=== PATIENT | female | born 1980 | race Caucasian/White ===

== ENCOUNTER → 2019-01-23 | Emergency (ER) | payer MEDICAID ==
[~2019-01-23] VITALS: Wt 80.0 kg
[~2019-01-23] MED LIST: IBUP800T48 PO
[2019-01-23 10:51] VITALS: BP 144/71; PULSE 102; RESP 20
--- NOTE | 2019-01-23 12:31 | ERD ---
ER Documentation Chief Complaint Chief Complaint VAGINAL BLEED NOT . ONSET 1 WK . SEVERE BLEEDING WITH CLOTS HPI 39-year-old female, , presents to the emergency department, complaining of 2 weeks with a menstrual period that started 01/09/2019. The patient is also complaining of mild cramping pain. Otherwise she denies headaches, fever, chills, dizziness, no reports of palpitations or weakness. The patient states that this is the first time that she is having an abnormal menses. ROS All systems reviewed and are negative except as per history of present illness. Allergies Allergies: Coded Allergies: No Known Allergy (Verified , 01/23/19) PMhx/Soc Medical and Surgical Hx: pt denies Medical Hx History of Surgery: No Anesthesia Reaction: No Hx Neurological Disorder: No Hx Respiratory Disorders: No Hx Cardiac Disorders: No Hx Psychiatric Problems: No Hx Miscellaneous Medical Probl: No Hx Alcohol Use: No Hx Substance Use: No Hx Tobacco Use: No Smoking Status: Never smoker FmHx Family History: No diabetes, No coronary disease Physical Exam Vitals Vital Signs Date Temp Pulse Resp B/P (MAP) Pulse Ox O2 O2 Flow FiO2 Time Delivery Rate 01/23/19 98.0 102 20 144/71 98 10:51 (95) Physical Exam Const: No acute distress Head: Atraumatic Eyes: Normal Conjunctiva ENT: Normal External Ears, Nose and Mouth. Neck: Full range of motion. No meningismus. Resp: Clear to auscultation bilaterally Cardio: Regular rate and rhythm, no murmurs Abd: Soft, non tender, non distended. Normal bowel sounds Skin: No petechiae or rashes Back: No midline or flank tenderness Ext: No cyanosis, or edema Neur: Awake and alert Psych: Normal Mood and Affect Results 24 hrs Laboratory Tests Test 01/23/19 12:35 01/23/19 12:37 POC Beta HCG, Qualitative NEGATIVE Bedside Urine pH (LAB) 6.5 Bedside Urine Protein (LAB) 2+ Bedside Urine Glucose (UA) Negative Bedside Urine Ketones (LAB) 1+ Bedside Urine Blood 3+ Bedside Urine Nitrite (LAB) Negative Bedside Urine Leukocyte Esterase (L Negative Procedures/MDM Vital signs stable, Physical exam unremarkable, abdomen soft, nontender. Patient hemodynamically stable. Differential diagnosis include but not limited to: , ovarian cyst, fib roids, endometriosis, malignancy, dysfunctional bleeding, hematologic condition. Low suspicion for PID, no signs of hypovolemic shock. Physical examination and clinical presentation consistent most likely with a first episode of metrorrhagia for 2 weeks, no clinical evidence of anemia. During the ED course the patient remained stable, no new complaints. Results and clinical impression discussed with patient who agrees with management. The patient is stable to be treated outpatient and will be discharged home with a Rx for ibuprofen, some side effects of prescribed medications (headache, rash, nausea, vomiting, diarrhea, drowsiness, habituation, bleeding, hypertension, interactions with other medications) were reviewed. The patient was instructed to follow up with the primary care provider in the next 48h. If symptoms persist, worsen or new symptoms develop, then patient should return to the ED immediately. Instructions explained and given directly by me to the patient with acknowledgment and demonstrated understanding. Disclaimer: Inadvertent spelling and grammatical errors are likely due to EHR/dictation software use and do not reflect on the overall quality of patient care. Also, please note that the electronic time recorded on this note does not necessarily reflect the actual time of the patient encounter. Departure Diagnosis: Primary Impression: Metrorrhagia Additional Impression: Perimenopausal Condition: Stable Additional Instructions: Muchas deng por [facility] para dave servicio. Esperamos que en dave visita a la fiona de emergencia dave problema medico haya sido solucionado y que se sienta mucho mejor. Para estar seguros que dave mejoria sigue en proceso, le pedimos el favor de hacer brenda jesica de seguimiento medico con dave doctor primario en los proximos 2-4 [place]ley. Lleve con usted estos documentos y las medicinas recetadas. Si selena sintomas empeoran, NO SE ESPERE, por favor regrese a fiona de emergencia INMEDIATAMENTE. En cecilia que usted no tenga un mdico de atencin primaria: Llame al mdico o clnica comunitaria de referencia que aparece abajo anna las horas de consultorio para hacer brenda jesica para que le vean. CLINICAS: [facility] [phone] [id number] [facility] [phone] [id number] [facility] [phone] [address] [facility] [phone] [facility] [phone] [id number] [facility]. [phone] VIJAY KEARNS MD Jan 23, 2019 12:27
== END | disposition home or self-care (01) ==
LOC: FTE 10:46
DX: N92.1 Excessive and frequent menstruation with irregular cycle (principal); N95.9 Unspecified menopausal and perimenopausal disorder; R10.2 Pelvic and perineal pain
CPT/HCPCS: 81003; 81025; 99282